=== PATIENT | female | born 1995 | race Two or more races ===

== ENCOUNTER 2016-06-06 13:18 | Emergency (ER) | payer OTHER ==
[2016-06-06 15:46] LABS: ABSOLUTE NEUTROPHIL COUNT 5.3 K/mm3 (1.8-7.7); BASO # 0.1 K/mm3 (0.0-0.2); BASO % 0.7 % (0.2-1.0); EOS # 0.2 (0.0-0.5); EOS % 2.6 % (0.9-2.9); HEMATOCRIT 39.2 % (37.0-47.0); HEMOGLOBIN 13.1 gm/l (12.0-16.0); IMM NEUT% 0.4 % (0-1); LYMPH # 2.8 (1.0-4.8); MEAN CELL VOLUME 85.4 fl (81.0-99.0); MEAN CORPUSCULAR HEMOGLOBIN 28.5 pg (27.0-31.0); MEAN CORPUSCULAR HGB CONC 33.4 g/dl (33.0-37.0); MONO # 0.6 (0.0-0.8); MONO % 6.5 % (4-12); NEUT % 58.8 % (43-75); PLATELET COUNT 243 K/mm3 (130-400); RED CELL DISTRIBUTION WIDTH 13.4 % (11.5-14.5)
--- NOTE | 2016-06-06 16:57 | US ---
Name: TANIYA BENNETT Exam: Obstetrical ultrasound Comparison: No recent comparison Clinical history: Spotting. Intrauterine gestation approximately 8 weeks 3 days. Beta hCG 5238 Findings: Transabdominal and endovaginal imaging of the pelvis was performed. Visualized bladder is normal. Uterus is normal size. There is a small oval smooth fluid collection within the uterus. A early yolk sac is thought to be seen but is a very vague. If this is a intrauterine gestation, it would correspond to 5 weeks 0 days yielding an estimated date of delivery of 02/06/2017. pole was not present. There is no perigestational hemorrhage. Right ovary measures 2.7 x 3.9 x 2.8 cm and left ovary measures 2.7 x 2.1 x 1.6 cm. The right ovary contains a 2.2 x 2.1 x 2.1 cm thick walled but simple cyst. Given the constellation of findings, early intrauterine gestation with right corpus luteum cyst is favored over a right ectopic with intrauterine pseudocyst. Continued follow-up based hCG and/or ultrasound is recommended. There is a slight amount of free fluid. Impression: 1. Small intrauterine fluid collection. A yolk sac is thought to be seen. There is a 2.2 cm right ovarian cystic structure. At this point, very early intrauterine gestation with right corpus luteum cyst is favored over right ectopic with intrauterine pseudosac. Serial beta hCG and/or ultrasound is recommended to completely exclude ectopic 2. Trace free fluid Note: The above report was uploaded to [facility]'s electronic medical records system at 1653 hours.
== END 2016-06-06 18:06 | disposition home or self-care (01) ==
LOC: ED 13:18
DX: O46.91 Antepartum hemorrhage, unspecified, first trimester (principal); Z3A.08 8 weeks gestation of pregnancy

== ENCOUNTER 2016-06-08 11:26 | Emergency (ER) | payer OTHER ==
[2016-06-08] MEDS ORDERED: ACETAMINOPHEN 325 MG TABLET ONE (12:40)
[2016-06-08 12:55] LABS: ABSOLUTE NEUTROPHIL COUNT 5.2 K/mm3 (1.8-7.7); BASO # 0.1 K/mm3 (0.0-0.2); BASO % 0.6 % (0.2-1.0); EOS # 0.3 (0.0-0.5); HEMATOCRIT 40.3 % (37.0-47.0); HEMOGLOBIN 13.1 gm/l (12.0-16.0); IMM NEUT% 0.3 % (0-1); MEAN CELL VOLUME 86.1 fl (81.0-99.0); MEAN CORPUSCULAR HGB CONC 32.5 g/dl (33.0-37.0); MEAN PLATELET VOLUME 9.9 fl (7.4-10.4); MONO # 0.5 (0.0-0.8); MONO % 5.7 % (4-12); NEUT % 57.4 % (43-75); PLATELET COUNT 255 K/mm3 (130-400); RED CELL DISTRIBUTION WIDTH 13.3 % (11.5-14.5)
--- NOTE | 2016-06-08 14:21 | US ---
OB COMP <14 WKS, OB TRANSVAGINAL CLINICAL HISTORY: Follow-up possible miscarriage. Gestational age 8 weeks 5 days. LMP 04/08/2016. Beta-hCG is not increasing, currently 4100, previously 5238. COMPARISON: Ultrasound, 06/06/2016 TECHNIQUE: Transabdominal and transvaginal. FINDINGS: Uterus: No gestational sac. Endometrial thickness 10.4 mm. 1.7 mm x 1.9 mm x 1 mm hypoechoic structure. Right ovary: 3.7 x 2.6 x 3.4 cm. Normal blood flow. 2.8 x 2.7 x 2.2 cm cyst. Left ovary: 0.2 x 1.8 x 2.3 cm. Normal blood flow. Adnexa mass none Impression: 1. Spontaneous . No gestational sac. Tiny residual cystic structure up to 2 mm within the normal thickness endometrium. Normal uterus. No adnexal mass. The report was sent to the emergency department [employer] medical record system 06/08/2016 at 14:23
[2016-06-08] MEDS ORDERED: IBUPROFEN 600 MG TABLET ONE (15:05)
== END 2016-06-08 15:15 | disposition home or self-care (01) ==
LOC: ED 11:26
DX: O03.9 Complete or unspecified spontaneous abortion without complication (principal); Z3A.08 8 weeks gestation of pregnancy
CPT/HCPCS: 84702; 85025; 76817; 76801; 99283 ×2; A9270 ×2